=== PATIENT | male | born 2000 | race Caucasian/White ===

== ENCOUNTER 2023-03-06 20:27 | Emergency (ER) | payer BC, OTHER ==
[2023-03-06 20:36] VITALS: RESP 18; TEMP 98; BMI 21.9
[2023-03-06] MEDS ORDERED: ONDANSETRON *ODT* 4 MG TABLET SL ONE (21:31)
[2023-03-06] MEDS ORDERED: ACETAMINOPHEN 500 MG TABLET (FP) PO ONE (21:31)
[2023-03-06] MEDS ORDERED: ONDANSETRON *ODT* 4 MG TABLET ONE (21:44)
[2023-03-06 22:06] VITALS: BP 90/65; PULSE 51
== END 2023-03-06 22:10 | disposition home or self-care (01) ==
LOC: JER 20:27
PROC: 0HQ1XZZ Repair Face Skin, External Approach (ICD-10-PCS; principal; 2023-03-06)
DX: S01.81XA Laceration without foreign body of other part of head, initial encounter (principal); W22.8XXA Striking against or struck by other objects, initial encounter
CPT/HCPCS: 99283-25; Q0162